=== PATIENT | male | born 1980 | race Caucasian/White ===

== ENCOUNTER 2018-11-15 05:44 | Day surgery (SDC) | payer OTHER ==
[2018-11-15] MEDS ORDERED: EPINEPHrine 0.1 MG/ML SYG ×2 (06:59→09:52)
[2018-11-15] MEDS ORDERED: PROPOFOL 200 MG INJ (07:00)
[2018-11-15] MEDS ORDERED: EPINEPHrine 1 MG/ML 30 ML INJ INJ (07:30)
[2018-11-15] MEDS ORDERED: PROPOFOL 20 ML (07:43)
[2018-11-15] MEDS ORDERED: MIDAZOLAM 1 MG/ML 2 ML INJ (07:43)
[2018-11-15] MEDS ORDERED: CEFAZOLIN 1 GM INJ (07:43)
[2018-11-15] MEDS ORDERED: ROCURONIUM 50 MG INJ (07:43)
[2018-11-15] MEDS ORDERED: ROPIVACAINE 0.5 % 30 ML VIAL (07:43)
[2018-11-15] MEDS ORDERED: FENTAnyl 50 MCG/ML VIAL IV ×3 (08:00)
[2018-11-15] MEDS ORDERED: EPHEDrine SULFATE 50 MG/5 ML SYG IV (08:00)
[2018-11-15] MEDS ORDERED: OXYCODONE/ACETAMINOPHEN (5/325) TAB PO (08:00)
[2018-11-15] MEDS ORDERED: hydrALAzine 20 MG INJ IV (08:00)
[2018-11-15] MEDS ORDERED: MEPERIDINE 25 MG INJ IV (08:00)
[2018-11-15] MEDS ORDERED: DIPHENHYDRAMINE 50 MG INJ IV (08:00)
[2018-11-15] MEDS ORDERED: HYDROmorphONE 1 MG/5 ML IV SYRINGE IV (08:00)
[2018-11-15] MEDS ORDERED: LABETALOL HCL 20MG INJ IV (08:00)
[2018-11-15] MEDS ORDERED: ONDANSETRON 4 MG INJ IV (08:00)
[2018-11-15] MEDS: morphine SULFATE/PF (10 MG/10 ML) INJ (08:48)
[2018-11-15] MEDS ORDERED: DEXAMETHASONE 4 MG/ML 5 ML INJ (09:50)
[2018-11-15] MEDS ORDERED: METOCLOPRAMIDE 10 MG INJ (09:50)
[2018-11-15] MEDS ORDERED: ONDANSETRON 4 MG INJ (09:50)
[2018-11-15] MEDS ORDERED: KETOROLAC 30 MG INJ (09:50)
[2018-11-15] MEDS ORDERED: NEOSTIGMINE 3 MG/3 ML SYRINGE (09:52)
[2018-11-15] MEDS ORDERED: GLYCOPYRROLATE 0.4 MG INJ (09:52)
[2018-11-15] MEDS: HYDROmorphONE 1 MG/5 ML IV SYRINGE IV ×2 (10:30→10:51)
[2018-11-15] MEDS: METOCLOPRAMIDE 10 MG INJ IV (10:31)
[2018-11-15] MEDS: OXYCODONE/ACETAMINOPHEN (5/325) TAB PO (10:31)
== END 2018-11-15 12:26 | disposition home or self-care (01) ==
LOC: SDS 05:44
DX: S43.432D Superior glenoid labrum lesion of left shoulder, subsequent encounter (principal); M75.102 Unspecified rotator cuff tear or rupture of left shoulder, not specified as traumatic; X58.XXXD Exposure to other specified factors, subsequent encounter; E78.5 Hyperlipidemia, unspecified
CPT/HCPCS: 29807